=== PATIENT | male | born 1970 | race Caucasian/White ===

== ENCOUNTER 2016-10-15 10:53 | Inpatient (IN) ==
[2016-10-15 12:01] LABS: Basophils # 0.1 K/mcL (0.0-0.2); Eosinophils # 0.2 K/mcL (0.0-0.6); Eosinophils % 3.7 %; Hematocrit 50.5 % (37.5-50.1); Hemoglobin 17.9 g/dL (12.9-16.9); Immature Granulocytes % 0.2 % (0-4); Lymphocytes # 1.4 K/mcL (0.6-4.6); Lymphocytes % 23.4 %; Mean Corpuscular HGB Conc 35.4 g/dL (31.6-35.5); Mean Corpuscular Hemoglobin 31.7 pg (28.0-33.3); Mean Corpuscular Volume 89.4 fL (83.0-100.0); Mean Platelet Volume 10.3 fL (9.4-12.4); Monocytes # 0.6 K/mcL (0.0-1.3); Monocytes % 9.2 %; Neutrophils # 3.7 K/mcL (1.6-8.9); Platelet Count 176 K/mcL (140-400); Red Blood Count 5.65 M/mcL (4.19-5.50); Segmented Neutrophils % 62.5 %
[2016-10-15 12:03] LABS: INR 1.1; Prothrombin Time 11.5 Seconds (9.4-12.1)
[2016-10-15 12:05] LABS: Activated Partial Thrombo Time 29.6 Seconds (26.0-36.0)
[2016-10-15 12:12] LABS: Alanine Aminotransferase 49 Units/L (0-55); Albumin 4.1 g/dL (3.5-5.0); Albumin/Globulin Ratio 1.2 (1.1-2.2); Alkaline Phosphatase 71 Units/L (38-126); Aspartate Amino Transferase 40 Units/L (5-34); BUN/Creatinine Ratio 14 (6-26); Bilirubin,Direct 0.2 mg/dL (0.0-0.5); Bilirubin,Indirect 0.6 mg/dL (0.0-1.2); Bilirubin,Total 0.8 mg/dL (0.2-1.2); Blood Urea Nitrogen 15 mg/dL (8-26); Calcium 9.5 mg/dL (8.6-10.8); Carbon Dioxide 29 mEq/L (19-29); Chloride 100 mEq/L (98-109); Globulin 3.4 g/dL (2.4-3.5); Glucose 111 mg/dL (70-99); Osmolality,Calculated 286 (280-300); Potassium 4.1 mEq/L (3.5-4.5); Sodium 137 mEq/L (136-145); Total Protein 7.5 g/dL (6.0-8.3); eGFR For African Americans > 60 (> 60); eGFR For Non-African Americans > 60 (> 60)
[2016-10-15] MEDS ORDERED: Aspirin 81 MG TAB.CHEW PO ONE (12:43)
--- NOTE | 2016-10-15 12:46 | Emergency Department Note ---
Disposition Clinical Impression: Unstable angina pectoris, NSTEMI (non-ST elevated myocardial infarction) Disposition: Admitted As Inpatient Referrals: Zahida Mendez DO [Primary Care Provider] - Forms: ED Satisfaction Letter Chest Pain HPI - General Chief Complaint: ED Chest Pain Stated Complaint: "high bp", chest pain Time Seen by Provider: 10/15/16 11:06 Source: patient Limitations: no limitations Vital Signs Reviewed: Yes Nursing Notes Reviewed: Yes - History of Present Illness Pt complaint: chest pain Onset (ago): hour(s) (2) Duration: constant Onset: during rest Pain Location: left chest Severity scale (1-10): 2 Quality: heaviness Pain Radiation: LUE Improves with: nothing Worsens with: nothing Associated symptoms: Denies: nausea, vomiting Treatments prior to arrival chest pain: none - Related Data Allergies Allergy/AdvReac Type Severity Reaction Status Date / Time morphine AdvReac Vomiting Verified 10/15/16 11:03 All systems ED: reviewed and negative except as stated. Constitutional: Reports: weakness. Denies: fever, chills Cardiovascular: Denies: palpitations Respiratory: Denies: dyspnea Chest Pain PMH - Past Medical History Medical history: Reports: hypertension, myocardial infarction Psychiatric history: Reports: no psych history - Social History Smoking Status: Never smoker Alcohol use: Reports: occasionally Drug use: Reports: none Physical Exam - General Limitations: no limitations General appearance: alert, in no apparent distress - Head Head exam: atraumatic, normocephalic, normal inspection - Eye Eye exam: Present: normal appearance, PERRL, EOMI - Expanded Eye Exam Pupils: Left: reactive - ENT ENT exam: normal exam, normal oropharynx, mucous membranes moist - Expanded ENT Exam External ear exam: Present: normal external inspection Mouth exam: Present: normal external inspection Teeth exam: Present: normal inspection Throat exam: Present: normal inspection - Neck Neck exam: Present: normal inspection, full ROM, trachea midline - Chest Chest inspection: Present: normal inspection, symmetric chest wall rise - Respiratory Respiratory exam: Present: normal lung sounds bilaterally - Cardiovascular Cardiovascular exam: Present: regular rate, normal rhythm, normal heart sounds - Abdominal Exam Abdominal exam: Present: soft, Non-Tender. Absent: tenderness, distention, guarding, rebound, rigidity - Extremities Exam Extremities exam: Present: normal inspection, full ROM. Absent: tenderness, pedal edema - Expanded Upper Extremity Exam Shoulder exam: Present: normal inspection, full ROM Arm exam: Present: normal inspection, full ROM Elbow exam: Present: normal inspection, full ROM Forearm/Wrist exam: Present: normal inspection, full ROM Hand exam: Present: normal inspection, full ROM Vascular exam: Normal: capillary refill, radial pulse - Expanded Lower Extremity Exam Hip/Pelvis exam: Present: normal inspection, full ROM Upper leg exam: Present: normal inspection, full ROM Knee exam: Present: normal inspection, full ROM Lower leg exam: Present: normal inspection, full ROM Ankle exam: Present: normal inspection, full ROM Foot/toe exam: Present: normal inspection, full ROM Neurovascular/Tendon exam: Absent: motor deficit, sensory deficit, tendon deficit - Back Exam Back exam: Present: normal inspection, full ROM. Absent: tenderness - Neurological Exam Neurological exam: Present: alert, oriented X3 - Expanded Neurological Exam Patient oriented to: Present: person, place, time Coma Scale Eye Opening: Spontaneous Coma Scale Motor Response: Obeys Commands Coma Scale Verbal Response: Oriented Coma Scale Total: 15 - Psychiatric Psychiatric exam: Present: normal affect, normal mood - Skin Skin exam: Present: warm, dry, intact, normal color Course Vital Signs Temperature 97.9 F 10/15/16 10:57 Pulse Rate 62 10/15/16 10:57 Respiratory Rate 16 10/15/16 10:57 Blood Pressure 155/101 10/15/16 10:57 O2 Sat by Pulse Oximetry 97 10/15/16 10:57 Temperature 97.9 F 10/15/16 10:57 Pulse Rate 64 10/15/16 12:48 Respiratory Rate 16 10/15/16 12:48 Blood Pressure 134/95 10/15/16 12:48 O2 Sat by Pulse Oximetry 61 10/15/16 12:48 Oxygen Delivery Oxygen Delivery Room Air Chest Pain - Medical Records Medical records reviewed: Yes I reviewed the patient's medical records. - Lab Data Lab results reviewed: Yes I reviewed the patient's lab results. Result diagrams: 10/15/16 11:44 10/15/16 11:44 Lab Results 10/15/16 10/15/16 10/15/16 Range/Units 11:44 11:44 11:44 WBC (4.3-11.1) K/mcL RBC (4.19-5.50) M/mcL Hgb (12.9-16.9) g/dL Hct (37.5-50.1) % MCV (83.0-100.0) fL MCH (28.0-33.3) pg MCHC (31.6-35.5) g/dL RDW (11.5-14.5) % Plt Count (140-400) K/mcL MPV (9.4-12.4) fL Immature Gran % (0-4) % Seg Neutrophils % % Lymphocytes % % Monocytes % % Eosinophils % % Basophils % % Neutrophils # (1.6-8.9) K/mcL Lymphocytes # (0.6-4.6) K/mcL Monocytes # (0.0-1.3) K/mcL Eosinophils # (0.0-0.6) K/mcL Basophils # (0.0-0.2) K/mcL PT 11.5 (9.4-12.1) Seconds INR 1.1 APTT 29.6 (26.0-36.0) Seconds Sodium 137 (136-145) mEq/L Potassium 4.1 (3.5-4.5) mEq/L Chloride 100 (98-109) mEq/L Carbon Dioxide 29 (19-29) mEq/L BUN 15 (8-26) mg/dL Creatinine 1.11 (0.72-1.25) mg/dL Est GFR ( Amer) > 60 (> 60) Est GFR (Non-Af Amer) > 60 (> 60) BUN/Creatinine Ratio 14 (6-26) Glucose 111 H (70-99) mg/dL Calculated Osmolality 286 (280-300) Calcium 9.5 (8.6-10.8) mg/dL Total Bilirubin 0.8 (0.2-1.2) mg/dL Direct Bilirubin 0.2 (0.0-0.5) mg/dL Indirect Bilirubin 0.6 (0.0-1.2) mg/dL AST 40 H (5-34) Units/L ALT 49 (0-55) Units/L Alkaline Phosphatase 71 (38-126) Units/L Troponin I (0-0.03) ng/mL B-Natriuretic Peptide < 10 (0-100) pg/mL Serum Total Protein 7.5 (6.0-8.3) g/dL Albumin 4.1 (3.5-5.0) g/dL Globulin 3.4 (2.4-3.5) g/dL Albumin/Globulin Ratio 1.2 (1.1-2.2) 10/15/16 10/15/16 Range/Units 11:44 11:44 WBC 6.0 (4.3-11.1) K/mcL RBC 5.65 H (4.19-5.50) M/mcL Hgb 17.9 H (12.9-16.9) g/dL Hct 50.5 H (37.5-50.1) % MCV 89.4 (83.0-100.0) fL MCH 31.7 (28.0-33.3) pg MCHC 35.4 (31.6-35.5) g/dL RDW 13.0 (11.5-14.5) % Plt Count 176 (140-400) K/mcL MPV 10.3 (9.4-12.4) fL Immature Gran % 0.2 (0-4) % Seg Neutrophils % 62.5 % Lymphocytes % 23.4 % Monocytes % 9.2 % Eosinophils % 3.7 % Basophils % 1.0 % Neutrophils # 3.7 (1.6-8.9) K/mcL Lymphocytes # 1.4 (0.6-4.6) K/mcL Monocytes # 0.6 (0.0-1.3) K/mcL Eosinophils # 0.2 (0.0-0.6) K/mcL Basophils # 0.1 (0.0-0.2) K/mcL PT (9.4-12.1) Seconds INR APTT (26.0-36.0) Seconds Sodium (136-145) mEq/L Potassium (3.5-4.5) mEq/L Chloride (98-109) mEq/L Carbon Dioxide (19-29) mEq/L BUN (8-26) mg/dL Creatinine (0.72-1.25) mg/dL Est GFR ( Amer) (> 60) Est GFR (Non-Af Amer) (> 60) BUN/Creatinine Ratio (6-26) Glucose (70-99) mg/dL Calculated Osmolality (280-300) Calcium (8.6-10.8) mg/dL Total Bilirubin (0.2-1.2) mg/dL Direct Bilirubin (0.0-0.5) mg/dL Indirect Bilirubin (0.0-1.2) mg/dL AST (5-34) Units/L ALT (0-55) Units/L Alkaline Phosphatase (38-126) Units/L Troponin I 0.06 H* (0-0.03) ng/mL B-Natriuretic Peptide (0-100) pg/mL Serum Total Protein (6.0-8.3) g/dL Albumin (3.5-5.0) g/dL Globulin (2.4-3.5) g/dL Albumin/Globulin Ratio (1.1-2.2) - Radiology Data Radiology results reviewed: Yes I reviewed the patient's radiology results.
[2016-10-15] MEDS ORDERED: *HR* Heparin 5,000 UNIT/ML VIAL IVP ONE (12:48)
[2016-10-15] MEDS ORDERED: *HR* Heparin 5,000 UNIT/ML VIAL IVP PRN ×2 (12:48)
[2016-10-15] MEDS ORDERED: Heparin 25,000 UNIT/500 ML D5W 25,000 UNIT/500 ML MLS IVC SCH (13:00)
--- NOTE | 2016-10-15 13:40 | Cardiology History & Physical ---
Date of Encounter: 10/15/16 Time of Encounter: 13:30 Assessment and Plan (1) NSTEMI (non-ST elevated myocardial infarction) Current Visit: Yes Status: Acute Initial troponin 0.06. Will trend for total of 3. No EKG changes. Initial cardiac symptoms started this AM--chest pain with radiation to left shoulder/arm associated with feeling flush and arm tingling. Hx of moderate CAD in 2012. 30% mLAD, 40% mRCA, 85% inferior division branch of 1st marginal (small size vessel). Echo in 2013 preserved EF. Symptoms and mild troponin consistent with NSTEMI. Check echo. Recommend [facility]. R/B/A discussed. Will check head CT first due to complaint of blurred vision. If negative, will proceed with [facility]. Pt agreeable. Start heparin gtt if head CT negative. Will start ASA, Statin, BB. (2) CAD (coronary artery disease) Current Visit: Yes Status: Acute As above, moderate disease in 2013--30% mLAD, 40% mRCA, 85% inferior division branch of 1st marginal (small vessel size). ASA, Statin, BB. Qualifiers: Coronary Disease-Associated Artery/Lesion type: [place] artery [place] vs. transplanted heart: [place] heart Associated angina: with unstable angina Qualified Code(s): I25.110 - Atherosclerotic heart disease of [place] coronary artery with unstable angina pectoris (3) Blurred vision Current Visit: Yes Status: Acute Reports new onset of blurred vision 2 days ago. Pt attributes it to sinus issues that are ongoing. No focal deficits. Will order head CT to rule out any acute abnormality. History of Present Illness Chief complaint: Chest pain, blurred vision HPI: Mr. Mercedes is a 46 year old male with PMH of HTN, HLD, moderate CAD on [facility] In 2012 that presented to ED with chief complaint of chest pressure radiating to his left shoulder/arm associated with tingling and feeling flush. These symptoms started earlier today and have been ongoing, not worsened with exertion. Troponin 0.06. He reports he started feeling out of his usual state of health 3 days ago when he noticed his blood pressure was higher than usual. 2 days ago he developed blurred vision that has been constant, but now improved. He denies any focal weakness. Prior CV testing: [facility] 01/16/13: Impressions: Moderate atherosclerotic coronary artery disease. 85% stenosis in the inferior division branch of the 1st Marginal (small size vessel). The left ventricle is normal and has normal contractility EF 60%. Echo 07/31/13: Impressions: LVEF 65%; no obvious SWMA. Normal left ventricular size, thickness and systolic function. Normal diastolic function of the left ventricle. Normal left atrial size. Normal right ventricular size and function. Normal right atrial size. Mild mitral regurgitation. Estimated RVSP was 14 mmHg. No pulmonary hypertension. The IVC is not dilated. Past Med Surg Social Fam HX - Past Medical History Medical history: hypertension, myocardial infarction Psychiatric history: no psych history - Social History Smoking Status: Never smoker Smokeless Tobacco Status: No Alcohol use: occasionally Drug use: none Medications and Allergies Allergies morphine Adverse Reaction (Verified 10/15/16 11:03) Vomiting All Systems Review: A 10-system review of systems was performed and is negative for pertinent findings except as documented above in the HPI. - Constitutional Constitutional: headache(s) - Cardiovascular Cardiovascular: as per HPI, chest pain at rest, chest pain with exertion, diaphoresis Physical Examination Vital Signs, Last 4 Hours Temp Pulse Resp BP Pulse Ox 10/15/16 12:48 64 16 134/95 61 10/15/16 12:02 64 16 148/94 96 10/15/16 11:40 66 14 134/100 96 10/15/16 11:30 61 14 145/94 95 10/15/16 11:20 63 16 150/105 97 10/15/16 10:57 97.9 F 62 16 155/101 97 Vital Signs Temp Pulse Resp BP Pulse Ox 10/15/16 12:48 64 16 134/95 61 10/15/16 12:02 64 16 148/94 96 10/15/16 11:40 66 14 134/100 96 10/15/16 11:30 61 14 145/94 95 10/15/16 11:20 63 16 150/105 97 10/15/16 10:57 97.9 F 62 16 155/101 97 Intake and Output 10/14/16 10/15/16 10/15/16 23:59 07:59 15:59 Other: Weight 102.512 kg Patient Weight 10/15/16 23:59 Weight 102.512 kg General: Conversant, No Apparent Distress HEENT: Atraumatic, Normocephaly, Mucus Membranes Moist Neck: No JVD, Normal carotid pulses Cardiac: Reg Rate and Rhythm, Normal S1 and S2, No Murmur Lungs: Normal Breath Sounds, No Wheeze, Rales, Rhonchi Neuro: Alert and responsive, No focal deficits noted Abdomen: Soft, Non-Tender Skin: No rashes noted on visualized skin Musculoskeletal: No Chest Wall Tenderness Extremities: No Clubbing, No Cyanosis, No Edema, Normal Pulses Results 10/15/16 11:44 10/15/16 11:44 Lab Results 10/15/16 10/15/16 10/15/16 11:44 11:44 11:44 WBC Hgb Hct Plt Count INR 1.1 APTT 29.6 Sodium 137 Potassium 4.1 Chloride 100 Carbon Dioxide 29 BUN 15 Creatinine 1.11 Glucose 111 H Calcium 9.5 Total Bilirubin 0.8 AST 40 H ALT 49 Alkaline Phosphatase 71 Troponin I B-Natriuretic Peptide < 10 10/15/16 10/15/16 11:44 11:44 WBC 6.0 Hgb 17.9 H Hct 50.5 H Plt Count 176 INR APTT Sodium Potassium Chloride Carbon Dioxide BUN Creatinine Glucose Calcium Total Bilirubin AST ALT Alkaline Phosphatase Troponin I 0.06 H* B-Natriuretic Peptide Short CBC 10/15/16 Range/Units 11:44 WBC 6.0 (4.3-11.1) K/mcL Hgb 17.9 H (12.9-16.9) g/dL Hct 50.5 H (37.5-50.1) % Plt Count 176 (140-400) K/mcL Neutrophils # 3.7 (1.6-8.9) K/mcL BMP 10/15/16 Range/Units 11:44 Sodium 137 (136-145) mEq/L Potassium 4.1 (3.5-4.5) mEq/L Chloride 100 (98-109) mEq/L Carbon Dioxide 29 (19-29) mEq/L BUN 15 (8-26) mg/dL Creatinine 1.11 (0.72-1.25) mg/dL Glucose 111 H (70-99) mg/dL Calcium 9.5 (8.6-10.8) mg/dL Cardiac Enzymes 10/15/16 Range/Units 11:44 Troponin I 0.06 H* (0-0.03) ng/mL Liver Function 10/15/16 Range/Units 11:44 Total Bilirubin 0.8 (0.2-1.2) mg/dL Direct Bilirubin 0.2 (0.0-0.5) mg/dL AST 40 H (5-34) Units/L ALT 49 (0-55) Units/L Alkaline Phosphatase 71 (38-126) Units/L Albumin 4.1 (3.5-5.0) g/dL Impressions Chest X-Ray 10/15/16 11:04 IMPRESSION: No acute cardiopulmonary disease D/ / Robin Pinto MD / Robin Pinto MD Interpreting Provider: Robin Pinto MD Active Medications Heparin Sodium (Porcine) (Heparin) 4,000 unit IVP Q6HR PRN PRN Reason: SEE COMMENTS Stop: 04/16/17 12:49 Heparin Sodium (Porcine) (Heparin) 2,000 unit IVP Q6H PRN PRN Reason: SEE COMMENTS Stop: 04/16/17 12:49 Heparin Sodium/Dextrose (Heparin 25,000 Unit/500 Ml D5w) 25,000 unit in 500 mls @ 24.603 mls/hr IVC .[id number] ERASTO; 12 UNIT/KG/HR PRN Reason: Protocol Stop: 04/16/17 13:01 - Imaging and Cardiology Echo: report reviewed Cardiac cath: report reviewed - EKG Interpretation EKG results cardiology: personally reviewed (Sinus adiel, rate 57)
[2016-10-15] MEDS ORDERED: 0.9 % Sodium Chloride 1,000 ML ONE (13:50)
[2016-10-15] MEDS ORDERED: *HR* Heparin 10,000 UNIT/10 ML VIAL ONE (13:50)
[2016-10-15] MEDS ORDERED: Nitroglycerin 1,000 MCG/10 ML VIAL IV ONE (13:50)
[2016-10-15] MEDS ORDERED: Heparin 1,000 UNITS/500 mL NS 500 ML ONE (13:50)
[2016-10-15] MEDS ORDERED: Verapamil 5 MG/2 ML VIAL ONE (13:55)
[2016-10-15] MEDS ORDERED: *HR* Midazolam HCl 5 MG/5 ML VIAL IVP ONE (14:37)
[2016-10-15] MEDS ORDERED: *HR* FentaNYL (PF) 100 MCG/2 ML VIAL ONE (14:37)
--- NOTE | 2016-10-15 14:46 | Pre-Sedation Evaluation ---
Pre-sedation evaluation - Pre-sedation checklist Date of procedure: 10/15/16 Procedure: [facility] Recent Vitals: Last Vital Signs Temp 97.9 F 10/15/16 10:57 Pulse 64 10/15/16 12:48 Resp 16 10/15/16 12:48 BP 134/95 10/15/16 12:48 Pulse Ox 61 10/15/16 12:48 H&P (including ROS) documented in medical record: Yes Previous reaction to sedatives/anesthetics: No Dietary Status: NPO after Midnight Airway Assessment: Patient can open mouth completely, TMJ function normal ASA Classification *see protocol: CLASS II-Mild systemic disease Plan of Care: Pt appropriate candidate for procedure/moderate/conscious sedation , Risks/benefits of procedure/sedation discussed w/ patient/family
--- NOTE | 2016-10-15 15:46 | Event Note ---
Date of Encounter: 10/15/16 Time of Encounter: 15:00 - Cardiology Event Note PCI OM SAULO x 1. Normal EF. Aspirin and plavix x 1 year
[2016-10-16 04:14] LABS: Basophils % 0.5 %; Eosinophils # 0.3 K/mcL (0.0-0.6); Eosinophils % 3.8 %; Hematocrit 50.2 % (37.5-50.1); Hemoglobin 17.1 g/dL (12.9-16.9); Immature Granulocytes % 0.3 % (0-4); Lymphocytes # 1.4 K/mcL (0.6-4.6); Lymphocytes % 18.3 %; Mean Corpuscular HGB Conc 34.1 g/dL (31.6-35.5); Mean Corpuscular Hemoglobin 30.5 pg (28.0-33.3); Mean Corpuscular Volume 89.6 fL (83.0-100.0); Mean Platelet Volume 10.2 fL (9.4-12.4); Monocytes # 0.7 K/mcL (0.0-1.3); Monocytes % 8.7 %; Neutrophils # 5.1 K/mcL (1.6-8.9); Platelet Count 176 K/mcL (140-400); Red Cell Distribution Width 13.1 % (11.5-14.5); Segmented Neutrophils % 68.4 %
[2016-10-16 04:31] LABS: BUN/Creatinine Ratio 15 (6-26); Blood Urea Nitrogen 17 mg/dL (8-26); Carbon Dioxide 25 mEq/L (19-29); Chloride 102 mEq/L (98-109); Chol/HDL Ratio 9.5 (0-4.9); Cholesterol 246 mg/dL (< 200); Glucose 112 mg/dL (70-99); HDL Cholesterol 26 mg/dL (40-59); Osmolality,Calculated 286 (280-300); Triglycerides 723 mg/dL (< 150); eGFR For African Americans > 60 (> 60); eGFR For Non-African Americans > 60 (> 60)
[2016-10-16 04:38] LABS: Sodium 137 mEq/L (136-145)
[2016-10-16 06:43] VITALS: BP 139/83
[2016-10-16] MEDS ORDERED: Azithromycin 250 MG TABLET PO ONE (08:40)
--- NOTE | 2016-10-16 08:43 | Discharge Summary ---
Date of Encounter: 10/16/16 Time of Encounter: 08:42 - Discharge Diagnosis (1) NSTEMI (non-ST elevated myocardial infarction) Priority: Primary Status: Acute Comments: Troponin 0.06, 0.06 with acute onset of chest pressure radiating to left arm. S/P LHC yesterday with SAULO to OM. EF preserved on cath. DAPT (ASA and Plavix) x 1 year. Continue BB, switched from simvastatin to atorvastatin. Triglycerides 723, add fenofibrate. Symptoms now resolved. Denies chest or arm discomfort. Left radial access site healing well. No bleeding, hematoma or ecchymosis noted. Echo pending. Labs and vitals stable. Discharge home in stable condition with outpt follow-up in 1 week. (2) CAD (coronary artery disease) Priority: Primary Status: Acute Comments: As above, S/P SAULO to OM. ASA and Plavix uninterrupted x 1 year. Statin, BB, fenofibrate. Qualifiers: Coronary Disease-Associated Artery/Lesion type: [place] artery [place] vs. transplanted heart: [place] heart Associated angina: with unstable angina Qualified Code(s): I25.110 - Atherosclerotic heart disease of [place] coronary artery with unstable angina pectoris (3) Sinusitis Priority: Secondary Status: Acute Comments: Pt reports sinusitis symptoms ongoing for 3 weeks---headache, congestion, blurred vision that recently started. Head CT negative for acute abnormality. Hx of sinusitis, reports Z-papi usually works best for him. Discussed with pharmacist given NSTEMI. Short course of Azithromycin safe to use. Will give Rx for Z-papi. Qualifiers: Sinusitis location: unspecified location Chronicity: acute Recurrence: not specified as recurrent Qualified Code(s): J01.90 - Acute sinusitis, unspecified (4) Hyperlipidemia Priority: Secondary Status: Acute Comments: Triglycerides 723, total cholesterol 246. Switch Simvastatin to Atorvastatin. Start fenofibrate therapy. Recheck Lipids in 6 weeks. Qualifiers: Hyperlipidemia type: mixed hyperlipidemia Qualified Code(s): E78.2 - Mixed hyperlipidemia - Discharge Medications Prescriptions: Nitroglycerin 0.4 mg SL Q5MIN #30 tab.subl Atorvastatin [Lipitor] 80 mg PO HS #30 tablet Azithromycin [Zithromax] 250 mg PO DAILY #4 tablet Fenofibrate [Tricor] 54 mg PO DAILY #30 tablet Home Medications: Aspirin [Lo-Dose Aspirin EC] 81 mg PO DAILY 10/15/16 [History] Clopidogrel [Plavix] 75 mg PO DAILY 10/15/16 [History] Esomeprazole Magnesium [Nexium] 40 mg PO DAILY 10/15/16 [History] Fluticasone Propionate Nasal [Flonase] 2 spr NS DAILY PRN 10/15/16 [History] Garlic [Odorless Garlic] 300 mg PO DAILY 10/15/16 [History] Loratadine [Claritin] 10 mg PO DAILY PRN 10/15/16 [History] Metoprolol [Lopressor] 25 mg PO BID 10/15/16 [History] Multivits,Ca,Min/Iron/FA/Lycop [Men Under 50 Multivitamin Tab] 1 each PO DAILY 10/15/16 [History] Clancy-3/Dha/Epa/Fish Oil [Fish Oil 1,000 mg Softgel] 1,000 mg PO DAILY 10/15/16 [History] Testosterone Cypionate [Depo-Testosterone] 200 mg IM Q2W 10/15/16 [History] Aspirin 81 mg PO DAILY tab.chew 10/16/16 [Rx] Atorvastatin [Lipitor] 80 mg PO HS #30 tablet 10/16/16 [Rx] Azithromycin [Zithromax] 250 mg PO DAILY #4 tablet 10/16/16 [Rx] Clopidogrel [Plavix] 75 mg PO DAILY tablet 10/16/16 [Rx] Fenofibrate [Tricor] 54 mg PO DAILY #30 tablet 10/16/16 [Rx] Metoprolol [Lopressor] 25 mg PO BID tablet 10/16/16 [Rx] Nitroglycerin 0.4 mg SL Q5MIN #30 tab.subl 10/16/16 [Rx] Allergies/Adverse Reactions: Allergies morphine Adverse Reaction (Verified 10/15/16 11:03) Vomiting Procedures/tests Complete & Pending: Procedures Performed prior 72 hours Category Date Time Status ECG 12 lead ECG [ECG] Routine Y 10/15/16 15:35 Completed Date of admission: 10/15/16 15:21 Primary care physician: Zahida Mendez Discharging clinician: Geo Elliott Anticipated date of discharge: 10/16/16 - Patient Status Disposition: Home, Self-Care Condition: Good Functional capacity at discharge: independent ambulation Overall status at discharge: patient is progressing back to baseline - Discharge Instructions Follow Up With: Zahida Mendez DO [Primary Care Provider] - Additional Instructions: RISK FACTORS: STOP SMOKING: If you smoke, STOP. Smoking or tobacco use significantly increases your risk of heart disease because nicotine causes the arteries to narrow or constrict. It also causes fats to stick to the artery. Your chances of having a heart attack are greatly increased if you continue to smoke. For more information, call the education line for smoking cessation 3-042-[id number] EAT A LOW FAT/CHOLESTEROL/SODIUM DIET: This diet may help reduce your chances of having a heart attack. LIFTING: With affected extremity: Avoid bending, pushing off and lifting more than 2 pounds for 24 hours The following 48 hours, avoid lifting anything more than 5 pounds Avoid strenuous activity or repetitive motions ACTIVITY: You may walk or climb stairs as tolerated You can resume sexual activity as tolerated In general, you are encouraged to engage in a minimum of 30 minutes or more of moderate intensity physical activity, such as brisk walking, daily or at least 3 -4 times weekly BATHING Do not submerge the site into water (bath tub, hot tub, swimming pool, dishes) for 1 week. This can be a source for infection into the blood stream. You may shower after 24 hours SITE CARE: After 24 hours, you may remove the dressing and leave the site open to air. Keep the site clean and dry. Clean gently and pat dry. You can expect bruising and tenderness that gradually resolve within a week or two. Return to work as instructed per your physician Resume driving as instructed per physician Keep all scheduled follow up appointments Resume medications as instructed IMPORTANT: If prescribed a Platelet Aggregation Inhibitor such as, Plavix, Brilinta or Effient: Duration of therapy is minimum one year These medications are often used in combination with Aspirin in prevention of future heart attacks Never discontinue unless consult with your Sex Crimes Detective STROKE (CVA) Risk factors for a stroke are: Age, cigarette smoking, diabetes, excessive alcohol consumption, family history, high blood pressure, overweight, physical inactivity, prior stroke, heart attack, diagnosis of carotid artery stenosis or other artery disease. Warning signs: Sudden numbness or weakness of the face, arm or leg; especially on one side of the body, sudden confusion, trouble speaking or understanding, sudden trouble seeing in one or both eyes, sudden trouble walking, dizziness, loss of balance or coordination, sudden severe headache with no cause. Call 911 or go to the Emergency Room. CONGESTIVE HEART FAILURE: If you have been diagnosed with Congestive Heart Failure (CHF) and your symptoms return, make an appointment with your physician Weigh yourself daily. Notify your physician if you have a weight gain of two or more pounds in one day or five or more pounds in one week. If you experience any difficulty breathing, please call 911 BLEEDING: Although the risk of bleeding is minimal, it can happen. If you have any bleeding from the site, apply firm pressure above the puncture site for 10-15 minutes. If the bleeding does not stop, continue manual pressure and call 911 Contact [facility] ( ) if: You develop a fever greater than 101 degrees Fahrenheit Your site becomes reddened or has any drainage You have an increase in pain or burning at the site or if a large knot forms at the site. If you experience chest pain, shortness of breath, dizziness, or extreme tiredness, stop the activity and rest. Please notify [facility] office if you experience any of these symptoms and they are not relieved by rest please call 911! - Diet and Activity Activity: increase activity as tolerated Diet: low fat, low cholesterol - Hospital Course Hospital course: Mr. Mercedes is a 46 year old male that presented to left sided chest pain radiating down his left arm. Troponin 0.06, 0.06, diagnosed as NSTEMI. S/P LHC yesterday with SAULO to OM. EF preserved on cath. Symptoms now resolved. Denies chest or arm discomfort. Left radial access site healing well. No bleeding, hematoma or ecchymosis noted. DAPT (ASA and Plavix) x 1 year. Continue BB, switched from simvastatin to atorvastatin. Triglycerides 723, add fenofibrate. Echo pending. Discharge home in stable condition with outpt follow-up in 1 week. Pt reports sinusitis symptoms ongoing for 3 weeks---headache, congestion, blurred vision that recently started. Head CT negative for acute abnormality. Hx of sinusitis, reports Z-papi usually works best for him. Discussed with pharmacist given NSTEMI. Short course of Azithromycin safe to use. Will give Rx for Z-papi. - Time Spent with Patient Total time spent providing and/or coordinating discharge services: Physical Examination Vital Signs, Last 4 Hours Temp Pulse Resp BP Pulse Ox 10/16/16 08:04 95 10/16/16 06:40 98.6 F 70 15 139/83 95 10/16/16 04:45 98.6 F 71 17 134/90 94 Vital Signs Temp Pulse Resp BP Pulse Ox 10/16/16 08:04 95 10/16/16 06:40 98.6 F 70 15 139/83 95 10/16/16 04:45 98.6 F 71 17 134/90 94 10/16/16 00:09 97.9 F 77 16 105/63 96 10/15/16 20:38 97 10/15/16 19:53 97.6 F 71 21 136/97 97 10/15/16 16:18 97.5 F L 69 15 125/83 95 10/15/16 14:00 16 125/83 10/15/16 12:48 64 16 134/95 61 10/15/16 12:02 64 16 148/94 96 10/15/16 11:40 66 14 134/100 96 10/15/16 11:30 61 14 145/94 95 10/15/16 11:20 63 16 150/105 97 10/15/16 10:57 97.9 F 62 16 155/101 97 Intake and Output 10/15/16 10/16/16 10/16/16 23:59 07:59 15:59 Intake Total 100 / 100 Balance 100 / 100 Intake: Oral 100 / 100 Other: # Voids 1 General: Conversant, No Apparent Distress HEENT: Atraumatic, Normocephaly, Mucus Membranes Moist Neck: No JVD, Normal carotid pulses Cardiac: Reg Rate and Rhythm, Normal S1 and S2, No Murmur Lungs: Normal Breath Sounds, No Wheeze, Rales, Rhonchi Neuro: Alert and responsive, No focal deficits noted Abdomen: Soft, Non-Tender Skin: Other (left radial access site healing well. No bleeding, hematoma or ecchymosis noted.) Musculoskeletal: No Chest Wall Tenderness Extremities: No Clubbing, No Cyanosis, No Edema, Normal Pulses
[2016-10-16] MEDS ORDERED: Aspirin 81 MG TAB.CHEW PO SCH (09:00)
[2016-10-16] MEDS ORDERED: Aspirin Enteric Coated 81 MG Tablet PO SCH (09:00)
[2016-10-16] MEDS ORDERED: Fenofibrate 54 MG TABLET PO SCH (09:30)
--- NOTE | 2016-10-16 12:57 | Electrocardiograph Report ---
[place] [address] Test Date: 2016-10-15 Pat Name: Ehsan Mercedes Department: 102 Room: 2NE21 Gender: M Mds Nurse: Mellissa : 1970 Requested By: Izaiah Aragon Order Number: [id number] Reading MD: Evan Toussaint MD Measurements Intervals [place] Rate: 57 P: 54 VA: 177 QRS: -29 QRSD: 93 T: 17 QT: 374 QTc: 369 Interpretive Statements SINUS BRADYCARDIA BORDERLINE LEFT AXIS DEVIATION Electronically Signed On 10-16-2016 12:56:08 EDT by Evan Toussaint MD
--- NOTE | 2016-10-16 13:02 | Electrocardiograph Report ---
[place] [id number] Test Date: 2016-10-15 Pat Name: Ehsan Mercedes Department: 106 Room: 2N1 Gender: M Contact Worker: : 1970 Requested By: Evan Toussaint Order Number: [id number] Reading MD: Evan Toussaint MD Measurements Intervals [place] Rate: 59 P: 53 WI: 183 QRS: -42 QRSD: 90 T: 4 QT: 380 QTc: 379 Interpretive Statements SINUS BRADYCARDIA WITH SINUS ARRHYTHMIA MARKED LEFT AXIS DEVIATION Electronically Signed On 10-16-2016 13:01:13 EDT by Evan Toussaint MD
--- NOTE | 2016-10-16 14:25 | Invasive Diagnostic Lab ---
Name: Ehsan Mercedes Date of Study: 10/15/2016 Date: 1970 Ht: 180.0 cm /70.9 in Medical Record#: [id number] Age: 46 Wt: 103. kg / 227.08 lb Account/Order#: [id number] Gender: Male BSA: 2.22 Order #: [id number] Fluoro Dose: 728 mGy BMI: 31.79 Procedure Physician: Evna Toussaint MD, [facility] Referring MD: Neville Jaimes MD Referring MD: Procedures Performed: LEFT HEART CATH Stent w/ PTCA Single Major Vessel Indications: Non-Stemi Impressions: There is severe one vessel coronary artery disease. The left ventricle is normal and has normal contractility EF 60% Patient had successful PTCA/Drug-Eluting Stent placement in the 2nd OM. Recommendations: Optimal medical therapy of patient's disease. Aggressive risk factor modification. History/Risk Factors: [place] CAD Hypertension Dyslipidemia Family History of CAD Procedure Access obtained in the left Radial artery by percutaneous puncture Patient had successful PTCA/Drug-Eluting Stent placement in the 2nd OM. Complications: None, None Contrast: Isovue 122ml Closure Device: MynxGrip Hemodynamics: Pressures Site Systolic/ A Wave Diastolic/ V Wave End Diastolic/ Mean HR AO 117 97 108 73 AO 114 93 105 74 LV 116 -6 5 75 AO 123 81 102 77 AO 114 74 92 63 AO 100 64 82 71 AO 92 56 74 72 LV Ventriculography Ejection Method: LV Gram Ejection Fraction: 60% Wall Motion: SERRANO Anterobasal Normal Anterolateral Normal Apical: Normal Inferoapical Normal Inferobasal Normal Coronary Dominance: Left Lesion Findings/Interventions * Left Main Coronary Artery The LMCA is angiographically free of disease. * Left Anterior Descending There is a 30% stenosis in the proximal LAD and 20% mid. The lesion has a BRYAN flow of 3. * Circumflex There is a 16 mm long, 90% stenosis in the 2nd Marginal. The lesion has a BRYAN flow of 3. An intervention was performed on the 2nd Marginal with a final stenosis of 0%. There were no lesion complications. The final BRYAN flow was 3. * Right Coronary Artery - small nondominant The RCA is angiographically free of disease. Interventional Device(s) Vessel Segment Type Name Diameter (mm) Length (mm) 2nd Marginal Balloon Emerge Monorail 2 12 2nd Marginal Drug Eluting Stent Synergy 2.25 16 2nd Marginal Balloon NC Emerge 2.25 12 Updated by Leslie Fraser RT (R) on 10/15/2016 3:48:35 PM Evan Toussaint MD, FACC electronically signed on 10/16/2016 2:21:41 PM with status of Final
--- NOTE | 2016-10-19 16:43 | Invasive Diagnostic Lab Proc ---
Name: Ehsan Mercedes Date of Study: 10/15/2016 Date: 1970 Ht: 70.9in Medical Record#: [id number] Age: 46 Wt: 227.08lb Gender: Male BSA: 2.22 Order #: [id number] BMI: 31.79 Physicians Procedure Physician: Evan Toussaint MD, [facility] Referring MD: Neville Jaimes MD Referring MD: Staff Name Position Time In YulyAnnelise perez RN Manager Contact 02:29 PM Shanon Sorto RT Scrub 02:29 PM Madhavi Mcwilliams RN Monitor 02:29 PM Kim, Elayne RT (R) Manager Contact 03:36 PM Indications Indication Non-Stemi Procedures Performed Procedure L HRT ARTERY/VENTRICLE ANGIO PRQ CARD SAULO STENT W/ANGIO 1 VSL Pre-Procedure Checklist Informed consent is complete signed and on chart. H\\T\\P is on chart. ID band is on and ID verified with patient. Patient NPO for procedure The procedure was described for the patient and questions were answered. ECG is on chart. Rhythm: NSR Plan of Care Patient will tolerate the procedure without complications. Adequate level of comfort will be maintained. Hemodynamics will remain stable Patient will recover from procedure without complications. Respiratory function will be maintained. Cardiac rhythm will remain stable. Patient temperature will be maintained. Patient and/or family have verbalized understanding of the procedure. Patient Education Chief Complaint/Reason for Test: Cardiac Cath Developmental Category: Adult (18-64 years) Developmentally Appropriate for Age: Yes Learning Barriers: None Education Needs: Procedure Education Method: Verbal Information Taught: Cardiac Cath Educational Evaluation: Able to repeat information Intravenous Access Time IV Size Location DC'd Fluid/Drip Rate Units RN 02:26 PM 20g 1 /" Patent On Arrival Rt Antecubital 0.9NaCl 25 ml/hr Madhavi Mcwilliams RN Allergies morphine Vital Signs Time BP (mmHg) HR (bpm) O2 Sat. RR (bpm) LOC 02:55 PM / % 5 = Fully awake and oriented or at pre-proc level 02:55 PM / % 5 = Fully awake and oriented or at pre-proc level 03:10 PM / % 5 = Fully awake and oriented or at pre-proc level 02:32 PM 148 / 99 63 98 % 02:35 PM 149 / 96 66 99 % 16 02:37 PM 160 / 87 74 99 % 13 02:40 PM 156 / 93 72 99 % 20 02:43 PM 156 / 106 65 100 % 12 02:46 PM 150 / 104 76 99 % 13 02:49 PM 155 / 105 70 99 % 11 02:52 PM 164 / 107 68 99 % 14 02:55 PM 164 / 108 84 98 % 13 02:58 PM 144 / 100 62 95 % 10 03:02 PM 161 / 101 69 97 % 10 03:04 PM 153 / 93 81 95 % 16 03:07 PM 133 / 88 80 94 % 14 03:10 PM 146 / 72 65 96 % 19 03:13 PM 145 / 78 69 94 % 12 03:17 PM 136 / 79 62 93 % 12 03:19 PM 145 / 79 68 97 % 10 03:22 PM 133 / 84 67 96 % 15 03:25 PM 146 / 86 63 95 % 12 03:28 PM 151 / 93 65 96 % 15 03:31 PM 150 / 95 94 96 % 13 03:45 PM 120 / 91 66 95 % 16 5 = Fully awake and oriented or at pre-proc level 04:04 PM 120 / 91 68 94 % 16 5 = Fully awake and oriented or at pre-proc level Procedural Medications Time Medication Dose Units Method Given By 02:30 PM Oxygen 2 L/min nasal cannula Annelise Emery RN 02:40 PM Versed 2 mg Intravenous Annelise Emery RN 02:40 PM Fentanyl 50 mcg Intravenous Annelise Emery RN 02:53 PM Lidocaine 2% 0.5 ml Subcutaneous Evan Toussaint MD, FAC 02:53 PM Versed 2 mg Intravenous Annelise Emery RN 02:53 PM Fentanyl 50 mcg Intravenous Annelise Emery RN 03:04 PM Heparin 4000 units Nitroglycerin 200 mcg Verapamil 2.5 mg Intraarterial Evan Toussaint MD, FACC 03:24 PM Heparin 1000 units Intravenous Madhavi Mcwilliams RN 03:35 PM Plavix 300 mg Orally Madhavi Mcwilliams RN ASA Classification: CLASS II- Mild systemic disease (i.e. well-controlled diabetes, hypertension, asthma, cigarette smoking) Marion Score Preprocedure Postprocedure Activity 2- Moves 4 extremities sustained head lift Activity 2- Moves 4 extremities sustained head lift Circulation 2- SBP +/= 20 points of pre-anesthetic level Circulation 2- SBP +/= 20 points of pre-anesthetic level Consciousness 2- Awake and alert oriented x 3 Consciousness 2- Awake and alert oriented x 3 O2 Saturation 2- Able to maintain O2 satruation of 92% on room air O2 Saturation 2- Able to maintain O2 satruation of 92% on room air Respiratory 2- Able to deep breathe and cough well Respiratory 2- Able to deep breathe and cough well Total Score 10 Total Score 10 Contrast Agent: Isovue Diagnostic Contrast: 122 ml Total Contrast: 122 ml Fluoro Dose: 728 mGy Procedure Log Time Note Enter By 02:29 PM Pt arrived to clinical laboratory assistant 2 at 14:29 02:29 PM Annelise Emery RN Position: Manager Contact Time in: : 02: PM Shanon Sorto Position: Scrub Time in: :: PM Madhavi Mcwilliams RN Position: Monitor Time in: : 02:29 PM Patient charges- Angio tray pack, Navilyst 3mm J, Pulse Oximetry and ACIST tubing and transducer 02:30 PM Time: 14:30 Oxygen on at 2 L/min per nasal cannula by Annelise Emery RN 02:31 PM CathStat 02:31 PM Vitals capture started with the following parameters, Patient=Adult, Interval=3 min, Initial Udvvaroc=268 mmHg, Deflation Rate=5 mmHg, Cuff placed on Right Arm 02:32 PM HR=63 bpm, QXQK=926/99 mmhg, SpO2=98.0 %, Comment=SR 02:35 PM HR=66 bpm, EWIU=652/96 mmhg, SpO2=99.0 %, Resp=16 B/min, Comment=SR 02:37 PM HR=74 bpm, ZSRJ=439/87 mmhg, SpO2=99.0 %, Resp=13 B/min, Comment=SR 02:38 PM Physician arrived 14:38 :38 PM Meet and greet completed 02:38 PM Sign in performed according to hospital policy. :38 PM Procedure start 14:38 02:40 PM Time: 14:40 Versed 2 mg Intravenous Given by Annelise Emery RNrasheed 02:40 PM Time: 14:40 Fentanyl 50 mcg Intravenous Given by Annelise Emery RN rasheed 02:40 PM HR=72 bpm, HCDK=903/93 mmhg, SpO2=99.0 %, Resp=20 B/min, Comment=SR 02:43 PM HR=65 bpm, QPKO=402/106 mmhg, FmP3=297.0 %, Resp=12 B/min, Comment=SR 02:46 PM HR=76 bpm, KREK=627/104 mmhg, SpO2=99.0 %, Resp=13 B/min, Comment=SR 02:48 PM Recorded ECG: HR=76 Condition=Condition 1 02:48 PM Pressure channel 1 zeroed. 02:49 PM HR=70 bpm, HVYZ=767/105 mmhg, SpO2=99.0 %, Resp=11 B/min, Comment=SR 02:52 PM Time out performed according to hospital policy 02:52 PM HR=68 bpm, CZXW=185/107 mmhg, SpO2=99.0 %, Resp=14 B/min, Comment=SR 02:53 PM Time: 14:53 0.5 ml Lidocaine 2% to left radial Subcutaneous Given by Evan Toussaint MD, FACC 02:53 PM Time: 14:53 Versed 2 mg Intravenous Given by Annelise Emery RN 02:53 PM Time: 14:53 Fentanyl 50 mcg Intravenous Given by Annelise Emery RN [facility] 02:55 PM Time: 14:55 Patient comfortable and pain free: Yes 02:55 PM Time: 14:55LOC: 5 = Fully awake and oriented or at pre-proc level 02:55 PM Unsuccessful access attempt # 1 into the left Radial artery. Manual pressure applied to achieve hemostasis.. 02:55 PM HR=84 bpm, VYJN=668/108 mmhg, SpO2=98.0 %, Resp=13 B/min, Comment=SR 02:57 PM Unsuccessful access attempt # 2 into the left Radial artery. Manual pressure applied to achieve hemostasis.. 02:57 PM bed management called for bed assignment allner 02:58 PM HR=62 bpm, FKGL=002/100 mmhg, SpO2=95.0 %, Resp=10 B/min, Comment=SR 03:02 PM HR=69 bpm, XNVL=293/101 mmhg, SpO2=97 %, Resp=10 B/min 03:04 PM Access obtained by percutaneous puncture. 6Fr 10cm Terumo Glidesheath sheath placed in left Radial artery. [id number] kkallner 03:04 PM Time: 15:04 Patient given 4,000 units Heparin, 200 mcg Nitroglycerin, and 2.5 mg Verapamil Intraarterial by Evan Toussaint MD, [facility] kkallner 03:04 PM HR=81 bpm, UZFX=708/93 mmhg, SpO2=95.0 %, Resp=16 B/min, Comment=SR 03:05 PM 5Fr FR 4 catheter inserted over the wire DNC then wire removed kkallner 03:07 PM HR=80 bpm, YTFE=016/88 mmhg, SpO2=94.0 %, Resp=14 B/min, Comment=SR 03:08 PM Coronary Dominance: Left kkallner 03:08 PM RCA angiography performed in [place] kkallner 03:08 PM Catheter removed kkallner 03:08 PM 5Fr FL 4 catheter inserted over the wire DNC then wire removed kkallner 03:09 PM Recorded Pressure: Ao, HR=73, Condition=Condition 1 (Aorta) Ao 117/97/108 03:10 PM Time: 14:55 Patient comfortable and pain free: Yes kkallner 03:10 PM Time: 14:55LOC: 5 = Fully awake and oriented or at pre-proc level kkallner 03:10 PM LCA angiography performed in multiple views. [email or web address] 03:10 PM Recorded Pressure: Ao, HR=74, Condition=Condition 1 (Aorta) Ao 114/93/105 03:10 PM HR=65 bpm, SBSQ=834/72 mmhg, SpO2=96.0 %, Resp=19 B/min, Comment=SR 03:11 PM Lesion found in Proximal LAD. Pre Stenosis: 40 Pre BRYAN Flow: 3: Complete and Brisk Flow/Perfusion kkallner 03:11 PM Proximal Left Anterior Descending Coronary Artery with 40% stenosis. [email or web address] 03:12 PM Lesion found in 2nd Marginal. Pre Stenosis: 90 Pre BRYAN Flow: 3: complete and Brisk Flow/Perfusion kkallner 03:12 PM Circumflex, Obtuse Marginal, Left Posterior Descending, and Left Posterolateral Coronary Arteries with 90 % stenosis. kkallner 03:13 PM Catheter removed kkallner 03:13 PM 5Fr Pigtail catheter inserted over the wire DNC kkallner 03:13 PM HR=69 bpm, VRKR=340/78 mmhg, SpO2=94.0 %, Resp=12 B/min, Comment=SR 03:14 PM Catheter selectively placed in left ventricle kkall 03:15 PM Pressure channel 1 zero failed. 03:15 PM Pressure channel 1 zeroed. 03:15 PM Bolus angiogram of left Ventricle complete: 10 ml/sec for a total of 20 mls kk 03:15 PM Time: 15:10 Patient comfortable and pain free: Yes kk 03:15 PM Time: 15:10LOC: 5 = Fully awake and oriented or at pre-proc level kkall 03:15 PM Recorded Pressure: LV, Ao, HR=75, Condition=Condition 1 (Left Ventricle) LV 116/-6/5, (Aorta) Ao 123/81/102 03:16 PM Catheter removed kk 03:17 PM HR=62 bpm, HZPM=395/79 mmhg, SpO2=93.0 %, Resp=12 B/min 03:17 PM PCI Status Urgent dspell 03:17 PM PCI Indication: PCI for high risk Non-STEMI or unstable angina dspell 03:18 PM PCI lesion in 2nd Marginal. Pre Stenosis: 90 Pre BRYAN Flow: dspell 03:18 PM PCI lesion in 2nd Marginal. dspell 03:18 PM 6Fr EBU 3.5 [employer] guide catheter was used to cannulate the PCI vessel successfully. reused? No dspell 03:19 PM .014 [place] 190cm guide wire across target lesion- successful. reused? No dspell 03:19 PM Inflation device was opened. 03:19 PM Recorded Pressure: Ao, HR=63, Condition=Condition 1 (Aorta) Ao 114/74/92 03:19 PM HR=68 bpm, WDWF=459/79 mmhg, SpO2=97.0 %, Resp=10 B/min, Comment=SR 03:20 PM 2.0 mm x 12 mm Emerge Monorail balloon across target lesion- successful. reused? No dspell 03:22 PM Balloon inflated @ 10 brian for 20 seconds dspell 03:22 PM HR=67 bpm, WDBY=732/84 mmhg, SpO2=96.0 %, Resp=15 B/min 03:23 PM Balloon catheter removed intact. [email or web address] 03:24 PM 2.25mm x 16mm Synergy drug-eluting stent across target lesion- successful Lot #[id number] dspellman 03:24 PM Recorded Pressure: Ao, HR=71, Condition=Condition 1 (Aorta) Ao 100/64/82 03:24 PM Time: 15:24 Heparin 1000 units Intravenous Given by Madhavi Mcwilliams RN dspell 03:25 PM HR=63 bpm, GFAW=045/86 mmhg, SpO2=95.0 %, Resp=12 B/min, Comment=SR 03:26 PM Stent deployed @ 12 brian for 30 seconds dspellman 03:27 PM Stent delivery system removed intact. dspell 03:27 PM 2.25 mm x 12mm NC Emerge balloon across target lesion- successful. reused? No dspellman 03:28 PM Recorded Pressure: Ao, HR=72, Condition=Condition 1 (Aorta) Ao 92/56/74 03:28 PM HR=65 bpm, PEBO=193/93 mmhg, SpO2=96.0 %, Resp=15 B/min, Comment=SR 03:28 PM Balloon inflated @ 20 brian for 10 seconds dspell 03:29 PM Balloon catheter removed intact. dspell 03:30 PM Guide wire removed intact. dspell 03:30 PM Guide catheter removed intact. dspell 03:30 PM Procedure completed at 15:30 dspellman 03:31 PM HR=94 bpm, WJQO=381/95 mmhg, SpO2=96.0 %, Resp=13 B/min, Comment=SR 03:32 PM Sign out completed: Radiation Dose 728.44 mGy Fluoro Time: 5.6 Isovue 370 - 200ml contrast 122 ml given by Evan Toussaint MD, [facility]. Complications: NoneCardiac Rehab Consult needed: Yes confirmed administered medications: Yes [email or web address] 03:32 PM Arterial sheath pulled, Vasc Band closure device used and was Successful S/N. dspell 03:32 PM 12 ml air in Vasc Band. dspellman 03:33 PM Post ECG NSR dspellman 03:33 PM Post Blood Pressure 150/95 dspellman 03:34 PM 15:33 Post Pulses Lt Radial 2+ dspellman 03:34 PM Information taught Cardiac Cath, PCI, and Vasc Band dspell 03:34 PM Education needs Procedure, Plan of Care, and Responsibilities of Patient in Care dspell 03:35 PM Time: 15:35 Plavix 300 mg Orally Given by Madhavi Mcwilliams RN dspell 03:35 PM HR=66 bpm, AFHD=420/188 mmhg, SpO2=97.0 %, Resp=11 B/min 03:36 PM Learning barriers :None ell 03:36 PM Education Methods Verbal ell 03:36 PM Education evaluation Able to repeat information ell 03:36 PM Site status No bleeding/hematoma - Lt Wrist as reported by Shanon Sorto RT at 15:36 dspell 03:37 PM Sites, Elayne RT (R) Position: Manager Contact Time in: 15:36 dsp 03:39 PM Patient out of room: 15:39 dspell 03:40 PM Complications: None 03:40 PM Fluoro Time: 5.6 03:40 PM Isovue 370 - 200ml contrast 122 ml given by Evan Toussaint MD, [facility]. 03:40 PM Radiation Dose 728.44 mGy dspell 03:45 PM Report called to Guille REGAN [facility] 04:07 PM Delay to floor Bed availability dspell 04:07 PM Patient out of room: 16:07 to 2NE 21 Family [facility] Complications Complication None None Hemodynamics Pressures Site Systolic/A Wave Diastolic/V Wave Mean AO 117 97 108 AO 114 93 105 LV 116 -6 5 AO 123 81 102 AO 114 74 92 AO 100 64 82 AO 92 56 74 Post Procedure Information Blood Pressure: 150/95 mmHg Rhythm: NSR Post procedural instructions were given Closure Device Time Device Success/Fail 10/15/2016 3:45:00 PM MynxGrip Successful Site Checks Time Location Status Staff Sheath In? Note 03:36 PM Lt Wrist No bleeding/hematoma Shanon Sorto RT 03:45 PM Lt Wrist No bleeding/ No Hematoma Madhavi Mcwilliams RN 04:03 PM Lt Wrist No bleeding/ No Hematoma Sites, Elayne RT (R) 2cc of air removed from vacs band Pulses Time Site Pre-Procedure Post-Procedure Note 10/15/2016 2:28:00 PM Bilateral radial 2+ 10/15/2016 2:28:00 PM Bilateral DP \\T\\ PT 2+ 3:33:00 PM Lt Radial 2+ 10/15/2016 3:45:00 PM Lt Radial 1+ 10/15/2016 4:04:00 PM Lt Radial 1+ Updated by RT Anthony (R) on 10/19/2016 4:36:12 PM Leslie Fraser RT electronically signed on 10/19/2016 4:36:51 PM with status of Final
== END 2016-10-16 12:15 | disposition home or self-care (01) ==
LOC: EMEROO 10:53 → 2NENU 14:00
PROVIDERS: ADMIT Emergency Medicine; ATTEND Emergency Medicine

== ENCOUNTER 2017-12-08 12:07 | Observation (INO) ==
[2017-12-08] MEDS ORDERED: Ondansetron 4 MG/2 ML VIAL IVP ONE (12:27)
--- NOTE | 2017-12-08 12:41 | Emergency Department Note ---
Disposition Clinical Impression: Chest pain Qualifiers: Chest pain type: unspecified Qualified Code(s): R07.9 - Chest pain, unspecified Disposition: Admitted As Inpatient Condition: Fair Time of Disposition: 14:22 Chest Pain HPI - General Chief Complaint: ED Chest Pain Stated Complaint: CHEST PAIN Time Seen by Provider: 12/08/17 12:18 Source: patient Limitations: no limitations Vital Signs Reviewed: Yes Nursing Notes Reviewed: Yes - History of Present Illness HPI Narrative: Patient is a 47-year-old male who presents to [facility] ED with a chief complaint of chest tightness. States his symptoms started this morning. Dates he recently had a dental infection and was started on amoxicillin yesterday. He got up this morning and tried have breakfast but was nauseated. States he thought this was probably secondary to the antibiotic. He also states he felt little short of breath and the chest tightness started. Pt complaint: chest pain Onset (ago): hour(s) Duration: constant Onset: during rest Pain Location: substernal Severity: moderate Severity scale (1-10): 5 Quality: tightness Pain Radiation: LUE Improves with: nothing Worsens with: nothing Associated symptoms: Reports: nausea, vomiting, dyspnea. Denies: fever, cough Treatments prior to arrival chest pain: aspirin - Related Data Home Medications Medication Instructions Recorded Confirmed Clopidogrel [Plavix] 75 mg PO DAILY 10/15/16 12/08/17 Esomeprazole Magnesium [Nexium] 40 mg PO DAILY 10/15/16 12/08/17 Fluticasone Propionate Nasal 2 spr NS DAILY PRN 10/15/16 12/08/17 [Flonase] Garlic [Odorless Garlic] 300 mg PO DAILY 10/15/16 12/08/17 Loratadine [Claritin] 10 mg PO DAILY PRN 10/15/16 12/08/17 Metoprolol [Lopressor] 25 mg PO BID 10/15/16 12/08/17 Multivits,Ca,Min/Iron/FA/Lycop 1 each PO DAILY 10/15/16 12/08/17 [Men Under 50 Multivitamin Tab] [place]-3/Dha/Epa/Fish Oil [Fish Oil 1,000 mg PO DAILY 10/15/16 12/08/17 1,000 mg Softgel] Testosterone Cypionate 200 mg IM Q2W 10/15/16 12/08/17 [Depo-Testosterone] Amoxicillin [Amoxil] 500 mg PO TID 12/08/17 12/08/17 Furosemide [Lasix] 20 mg PO DAILY 12/08/17 12/08/17 Potassium Chloride [Klor-Con 10 meq PO DAILY 12/08/17 12/08/17 Sprinkle] Tadalafil [Cialis] 10 mg PO DAILY PRN 12/08/17 12/08/17 Previous Rx's Medication Instructions Recorded Aspirin 81 mg PO DAILY tab.chew 10/16/16 Atorvastatin [Lipitor] 80 mg PO HS #30 tablet 10/16/16 Fenofibrate [Tricor] 54 mg PO DAILY #30 tablet 10/16/16 Nitroglycerin 0.4 mg SL Q5MIN #30 tab.subl 10/16/16 Allergies Allergy/AdvReac Type Severity Reaction Status Date / Time morphine AdvReac Vomiting Verified 12/08/17 13:55 All systems ED: reviewed and negative except as stated. Chest Pain PMH - Past Medical History Medical history: Reports: hypertension, myocardial infarction Psychiatric history: Reports: no psych history - Social History Smoking Status: Never smoker Alcohol use: Reports: occasionally Drug use: Reports: none Physical Exam - General Limitations: no limitations General appearance: alert, in no apparent distress - Head Head exam: atraumatic, normocephalic, normal inspection - Eye Eye exam: Present: EOMI - ENT ENT exam: normal exam, normal oropharynx, mucous membranes moist - Neck Neck exam: Present: normal inspection, full ROM, trachea midline - Chest Chest inspection: Present: normal inspection, symmetric chest wall rise - Respiratory Respiratory exam: Present: normal lung sounds bilaterally - Cardiovascular Cardiovascular exam: Present: regular rate, normal rhythm, normal heart sounds - Abdominal Exam Abdominal exam: Present: soft, Non-Tender. Absent: tenderness, distention, guarding, rebound, rigidity - Extremities Exam Extremities exam: Present: normal inspection, full ROM. Absent: tenderness, pedal edema - Back Exam Back exam: Present: normal inspection, full ROM. Absent: tenderness - Neurological Exam Neurological exam: Present: alert, oriented X3 - Psychiatric Psychiatric exam: Present: normal affect, normal mood - Skin Skin exam: Present: warm, dry, intact, normal color Course Course Narrative: Patient seen and examined. Chest tightness that started this morning along with some difficulty breathing and nausea and vomiting. History of CAD with one stent. Cardiopulmonary workup initiated. We will give a full dose aspirin as well as nitroglycerin. We will likely admit for cardiac workup. - Reevaluation(s) Reevaluation #1: Patient's chest pain resolved with the nitroglycerin. We will admit for cardiac workup. I discussed with the hospitalist Dr. Wilkerson who has accepted patient for admission. Time: 14:21 Vital Signs Temperature 97.9 F 12/08/17 12:13 Pulse Rate 68 12/08/17 12:13 Respiratory Rate 18 12/08/17 12:13 Blood Pressure 150/91 12/08/17 12:13 O2 Sat by Pulse Oximetry 96 12/08/17 12:13 Temperature 97.9 F 12/08/17 12:13 Pulse Rate 63 12/08/17 12:57 Respiratory Rate 18 12/08/17 12:57 Blood Pressure 122/66 12/08/17 12:57 O2 Sat by Pulse Oximetry 93 12/08/17 12:57 Oxygen Delivery Oxygen Delivery Room Air Chest Pain - Medical Records Medical records reviewed: Yes I reviewed the patient's medical records. - Lab Data Lab results reviewed: Yes I reviewed the patient's lab results. Result diagrams: 12/08/17 12:17 12/08/17 12:17 Lab Results 12/08/17 12/08/17 Range/Units 12:17 12:17 WBC 9.2 (4.3-11.1) K/mcL RBC 6.16 H (4.19-5.50) M/mcL Hgb 19.4 H (12.9-16.9) g/dL Hct 55.6 H (37.5-50.1) % MCV 90.3 (83.0-100.0) fL MCH 31.5 (28.0-33.3) pg MCHC 34.9 (31.6-35.5) g/dL RDW 13.2 (11.5-14.5) % Plt Count 209 (140-400) K/mcL MPV 10.4 (9.4-12.4) fL Immature Gran % 0.7 (0-4) % Seg Neutrophils % 78.3 % Lymphocytes % 14.3 % Monocytes % 5.5 % Eosinophils % 1.0 % Basophils % 0.2 % Neutrophils # 7.2 (1.6-8.9) K/mcL Lymphocytes # 1.3 (0.6-4.6) K/mcL Monocytes # 0.5 (0.0-1.3) K/mcL Eosinophils # 0.1 (0.0-0.6) K/mcL Basophils # 0.0 (0.0-0.2) K/mcL Sodium 133 L (136-145) mEq/L Potassium 4.2 (3.5-5.1) mEq/L Chloride 99 (98-107) mEq/L Carbon Dioxide 28 (23-29) mEq/L BUN 14 (6-20) mg/dL Creatinine 0.96 (0.70-1.30) mg/dL Est GFR ( Amer) > 60 (> 60) Est GFR (Non-Af Amer) > 60 (> 60) BUN/Creatinine Ratio 15 (6-26) Glucose 136 H (70-105) mg/dL Calculated Osmolality 279 L (280-300) Calcium 9.6 (8.6-10.3) mg/dL Troponin I 0.03 (< 0.04) ng/mL - Radiology Data Radiology results reviewed: Yes I reviewed the patient's radiology results. Chest X-Ray 12/08/17 12:25 IMPRESSION: No acute cardiopulmonary disease D/ / Robin Pinto MD / Robin Pinto MD Interpreting Provider: Robin Pinto MD - EKG Data EKG attestation: Yes I reviewed and interpreted this EKG. EKG results narrative: EKG done at 1214 shows normal sinus rhythm with a rate of [address] elevation or depression. [place] deviation. Inverted T waves noted in leads 3 and aVF. These appear unchanged from prior EKG done 11/14/2016. Heart Score - Score History: Moderately Suspicious EKG: Non Specific repolarisation Disturbance Age: 45-65 Risk Factors: Equal/Greater than 3 risk factor or history of atherosclerotic disease Troponin: Less than normal limit HEART Score Total: 5
[2017-12-08] MEDS: Aspirin 81 MG TAB.CHEW PO STA ×2 (12:45→12:52)
[2017-12-08] MEDS: Nitroglycerin 0.4 MG TAB.SUBL SL ONE ×2 (12:47→12:53)
[2017-12-08 13:04] LABS: BUN/Creatinine Ratio 15 (6-26); Blood Urea Nitrogen 14 mg/dL (6-20); Calcium 9.6 mg/dL (8.6-10.3); Carbon Dioxide 28 mEq/L (23-29); Chloride 99 mEq/L (98-107); Glucose 136 mg/dL (70-105); Osmolality,Calculated 279 (280-300); Potassium 4.2 mEq/L (3.5-5.1); Sodium 133 mEq/L (136-145); Troponin I 0.03 ng/mL (< 0.04); eGFR For Non-African Americans > 60 (> 60)
--- NOTE | 2017-12-08 13:46 | Emergency Department Note ---
Disposition Clinical Impression: Chest pain Qualifiers: Chest pain type: unspecified Qualified Code(s): R07.9 - Chest pain, unspecified Disposition: Admitted As Inpatient Condition: Fair General Adult HPI - General Chief complaint: ED Chest Pain Stated complaint: CHEST PAIN Time Seen by Provider: 12/08/17 12:18 Source: patient Limitations: no limitations - History of Present Illness Pain Scale: 5 - Related Data Home Medications Medication Instructions Recorded Confirmed Clopidogrel [Plavix] 75 mg PO DAILY 10/15/16 12/08/17 Esomeprazole Magnesium [Nexium] 40 mg PO DAILY 10/15/16 12/08/17 Fluticasone Propionate Nasal 2 spr NS DAILY PRN 10/15/16 12/08/17 [Flonase] Garlic [Odorless Garlic] 300 mg PO DAILY 10/15/16 12/08/17 Loratadine [Claritin] 10 mg PO DAILY PRN 10/15/16 12/08/17 Metoprolol [Lopressor] 25 mg PO BID 10/15/16 12/08/17 Multivits,Ca,Min/Iron/FA/Lycop 1 each PO DAILY 10/15/16 12/08/17 [Men Under 50 Multivitamin Tab] [place]-3/Dha/Epa/Fish Oil [Fish Oil 1,000 mg PO DAILY 10/15/16 12/08/17 1,000 mg Softgel] Testosterone Cypionate 200 mg IM Q2W 10/15/16 12/08/17 [Depo-Testosterone] Amoxicillin [Amoxil] 500 mg PO TID 12/08/17 12/08/17 Furosemide [Lasix] 20 mg PO DAILY 12/08/17 12/08/17 Potassium Chloride [Klor-Con 10 meq PO DAILY 12/08/17 12/08/17 Sprinkle] Tadalafil [Cialis] 10 mg PO DAILY PRN 12/08/17 12/08/17 Previous Rx's Medication Instructions Recorded Aspirin 81 mg PO DAILY tab.chew 10/16/16 Atorvastatin [Lipitor] 80 mg PO HS #30 tablet 10/16/16 Fenofibrate [Tricor] 54 mg PO DAILY #30 tablet 10/16/16 Nitroglycerin 0.4 mg SL Q5MIN #30 tab.subl 10/16/16 Allergies Allergy/AdvReac Type Severity Reaction Status Date / Time morphine AdvReac Vomiting Verified 12/08/17 13:55 Past Medical History - Past Medical History Medical history: Reports: hypertension, myocardial infarction Psychiatric history: Reports: no psych history - Social History Smoking Status: Never smoker Smokeless Tobacco Status: No Alcohol use: Reports: occasionally Drug use: Reports: none Physical Exam - General Limitations: no limitations General appearance: alert, in no apparent distress Course Vital Signs Temperature 97.9 F 12/08/17 12:13 Pulse Rate 68 12/08/17 12:13 Respiratory Rate 18 12/08/17 12:13 Blood Pressure 150/91 12/08/17 12:13 O2 Sat by Pulse Oximetry 96 12/08/17 12:13 Temperature 98 F 12/08/17 14:52 Pulse Rate 58 12/08/17 14:52 Respiratory Rate 15 12/08/17 14:52 Blood Pressure 129/73 12/08/17 14:52 O2 Sat by Pulse Oximetry 96 12/08/17 14:52 Oxygen Delivery Oxygen Delivery Room Air Medical Decision Making - Lab Data Result diagrams: 12/08/17 12:17 12/08/17 12:17 Lab Results 12/08/17 12/08/17 Range/Units 12:17 12:17 WBC 9.2 (4.3-11.1) K/mcL RBC 6.16 H (4.19-5.50) M/mcL Hgb 19.4 H (12.9-16.9) g/dL Hct 55.6 H (37.5-50.1) % MCV 90.3 (83.0-100.0) fL MCH 31.5 (28.0-33.3) pg MCHC 34.9 (31.6-35.5) g/dL RDW 13.2 (11.5-14.5) % Plt Count 209 (140-400) K/mcL MPV 10.4 (9.4-12.4) fL Immature Gran % 0.7 (0-4) % Seg Neutrophils % 78.3 % Lymphocytes % 14.3 % Monocytes % 5.5 % Eosinophils % 1.0 % Basophils % 0.2 % Neutrophils # 7.2 (1.6-8.9) K/mcL Lymphocytes # 1.3 (0.6-4.6) K/mcL Monocytes # 0.5 (0.0-1.3) K/mcL Eosinophils # 0.1 (0.0-0.6) K/mcL Basophils # 0.0 (0.0-0.2) K/mcL Sodium 133 L (136-145) mEq/L Potassium 4.2 (3.5-5.1) mEq/L Chloride 99 (98-107) mEq/L Carbon Dioxide 28 (23-29) mEq/L BUN 14 (6-20) mg/dL Creatinine 0.96 (0.70-1.30) mg/dL Est GFR ( Amer) > 60 (> 60) Est GFR (Non-Af Amer) > 60 (> 60) BUN/Creatinine Ratio 15 (6-26) Glucose 136 H (70-105) mg/dL Calculated Osmolality 279 L (280-300) Calcium 9.6 (8.6-10.3) mg/dL Troponin I 0.03 (< 0.04) ng/mL Attestation Statement - Attestation Attestation: I examined this patient and my medical decision-making was reviewed with the Resident Physician. I agree with the documented findings, disposition and treatment plan as described except to the extent set forth below. Patient with history of coronary disease status post stenting presents with chest pain this morning that in some ways replicates his prior ischemic pain. Currently pain-free after nitroglycerin. Nonspecific abnormalities on his EKG are consistent with his prior EKGs, no acute changes. Set multiple EKGs in the ED, none of which demonstrate any changes from his baseline. First troponin is negative.HEART score is 5. Arranging for admission.
[2017-12-08 13:48] LABS: Basophils % 0.2 %; Eosinophils # 0.1 K/mcL (0.0-0.6); Hematocrit 55.6 % (37.5-50.1); Hemoglobin 19.4 g/dL (12.9-16.9); Immature Granulocytes % 0.7 % (0-4); Lymphocytes # 1.3 K/mcL (0.6-4.6); Lymphocytes % 14.3 %; Mean Corpuscular HGB Conc 34.9 g/dL (31.6-35.5); Mean Corpuscular Hemoglobin 31.5 pg (28.0-33.3); Mean Corpuscular Volume 90.3 fL (83.0-100.0); Mean Platelet Volume 10.4 fL (9.4-12.4); Monocytes # 0.5 K/mcL (0.0-1.3); Monocytes % 5.5 %; Neutrophils # 7.2 K/mcL (1.6-8.9); Platelet Count 209 K/mcL (140-400); Red Blood Count 6.16 M/mcL (4.19-5.50); Red Cell Distribution Width 13.2 % (11.5-14.5); Segmented Neutrophils % 78.3 %
[2017-12-08] MEDS ORDERED: Naloxone 0.4 MG/ML INJ IVP PRN (16:11)
[2017-12-08] MEDS ORDERED: Nitroglycerin 0.4 MG TAB.SUBL SL PRN (16:20)
[2017-12-08] MEDS ORDERED: Ondansetron 4 MG/2 ML VIAL IVP PRN (16:20)
--- NOTE | 2017-12-08 16:38 | Electrocardiograph Report ---
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
[2017-12-08] MEDS ORDERED: Fluticasone Propionate Nasal 50 MCG/SPRAY BOTTLE NS PRN (16:49)
[2017-12-08] MEDS ORDERED: Loratadine 10 MG TABLET PO PRN (16:49)
--- NOTE | 2017-12-08 16:49 | Internal Med History&Physical ---
<Katerin Contreras M - Last Filed: 12/08/17 18:00> Date of Encounter: 12/08/17 Time of Encounter: 16:47 Internal Medicine - H&P: HPI Chief complaint: chest pain Admitted From: Emergency Dept History of present illness: Mr. Mercedes is a 47 year old male with history of CAD s/p stent in 2017, HTN, HLD, HTN, and GERD who presented to the ED on 12/08/17 with complaints of chest pain, shortness of breath, and elevated blood pressure. He states this morning he woke up feeling fatigued but went to work. At work, he attempted to eat breakfast at which time he began to experience significant nausea, diaphoresis, and shortness of breath. Throughout the day he continued to experience intermittent pain in his chest which he described as burning, along with nausea , and fatigue. He took his blood pressure which was elevated in 150s/90s. Additionally, over the last week he has had an increased amount of fluid in his legs and has been taking his prn lasix daily. He states these symptoms are very similar to his episode of ACS that required a stent last year. He otherwise states he is on amoxicillin and [place] as he had a tooth pulled and has stitches. He believes the norco may have blunted the pain in his arm. His pain is currently resolved after Nitro and nausea resolved after Zofran. EKG and Chest XR were unremarkable. Troponin 0.03. Past Med Surg Social Fam HX - Past Medical History Source: patient Medical history: coronary artery disease, GERD, hyperlipidemia, hypertension, myocardial infarction, other (low testosterone) Additional medical history: CT x4 Psychiatric history: no psych history - Past Surgical History Surgical History: angioplasty/stent, tonsilectomy Additional surgical history: wisdom teeth removal - Social History Smoking Status: Never smoker Smokeless Tobacco Status: No Alcohol use: occasionally Drug use: none Occupational status: employed Current living situation: Home - Independent Activity Level: Independent ambulation - Family History Father Living Status: Still Living Hx Family Cardiac Disorders: Yes Hx Family Respiratory Disorders: No Hx Family Cancer: Yes Hx Family GI Disorders: No Hx Family Endocrine Disorder: No Internal Medicine - H&P: Meds Clopidogrel [Plavix] 75 mg PO DAILY 10/15/16 [History] Esomeprazole Magnesium [Nexium] 40 mg PO DAILY 10/15/16 [History] Fluticasone Propionate Nasal [Flonase] 2 spr NS DAILY PRN 10/15/16 [History] Garlic [Odorless Garlic] 300 mg PO DAILY 10/15/16 [History] Loratadine [Claritin] 10 mg PO DAILY PRN 10/15/16 [History] Metoprolol [Lopressor] 25 mg PO BID 10/15/16 [History] Multivits,Ca,Min/Iron/FA/Lycop [Men Under 50 Multivitamin Tab] 1 each PO DAILY 10/15/16 [History] [place]-3/Dha/Epa/Fish Oil [Fish Oil 1,000 mg Softgel] 1,000 mg PO DAILY 10/15/16 [History] Testosterone Cypionate [Depo-Testosterone] 200 mg IM Q2W 10/15/16 [History] Aspirin 81 mg PO DAILY tab.chew 10/16/16 [Rx] Atorvastatin [Lipitor] 80 mg PO HS #30 tablet 10/16/16 [Rx] Fenofibrate [Tricor] 54 mg PO DAILY #30 tablet 10/16/16 [Rx] Nitroglycerin 0.4 mg SL Q5MIN #30 tab.subl 10/16/16 [Rx] Amoxicillin [Amoxil] 500 mg PO TID 12/08/17 [History] Furosemide [Lasix] 20 mg PO DAILY 12/08/17 [History] Potassium Chloride [Klor-Con Sprinkle] 10 meq PO DAILY 12/08/17 [History] Tadalafil [Cialis] 10 mg PO DAILY PRN 12/08/17 [History] 3 Allergy/AdvReac Type Severity Reaction Status Date / Time morphine AdvReac Vomiting Verified 12/08/17 13:55 All Systems PM: A 10-system review of systems was performed and is negative for pertinent findings except as documented above in the HPI. - Constitutional Constitutional: excessive sweating, fatigue, no chills, no fever(s) - EENT Eyes: no change in vision, no seeing flashes - Cardiovascular Cardiovascular ROS IM: chest pain, diaphoresis, dyspnea, dyspnea on exertion, edema, no irregular heart rhythm, no palpitations, no syncope - Respiratory Respiratory: dyspnea on exertion, no cough, no wheezing - Gastrointestinal Gastrointestinal: no abdominal pain, no diarrhea, no hematochezia, no melena - Genitourinary Genitourinary ROS male: no difficulty urinating, no dysuria, no hematuria - Musculoskeletal Musculoskeletal ROS IM: no arthralgias, no numbness, no tingling - Neurological Neurological ROS: no confusion, no dizziness, no focal weakness - Constitutional Vitals: Temp Pulse Resp BP Pulse Ox 98 F 58 15 129/73 96 12/08/17 14:52 12/08/17 14:52 12/08/17 14:52 12/08/17 14:52 12/08/17 16:01 General appearance: Present: A&O X 3, pleasant, no acute distress Exam: pleasant, not on oxygen - Head Head exam: Present: atraumatic, normocephalic - ENT ENT exam: Present: mucous membranes moist Additional comments: right lower tooth removed, no evidence of acute hemorrhage - Neck Neck exam general surgery: Present: full ROM, normal inspection - Respiratory Respiratory exam: Present: CTAB. Absent: accessory muscle use, rales, rhonchi, wheezes - Cardiovascular Cardiovascular exam: Present: RRR, +S1, +S2. Absent: diastolic murmur, gallop, irregular rhythm, rubs, systolic murmur - GI/Abdominal GI/Abdominal exam: Present: normal bowel sounds, soft, no peritoneal signs. Absent: distended, guarding, tenderness - Extremities Exam Extremities exam: Present: warm, radial pulses palpable and symmetrical. Absent : calf tenderness, cyanotic, pedal edema - Neurological Exam Neurological exam: Present: alert, oriented X3 - Psychiatric Psychiatric exam: Absent: anxious, flat affect Internal Med - H&P Results - Labs CBC & Chem 7: 12/08/17 16:44 12/08/17 16:44 - Impressions Chest X-Ray 12/08/17 12:25 IMPRESSION: No acute cardiopulmonary disease D/ / Robin Pinto MD / Robin Pinto MD Interpreting Provider: Robin Pinto MD - Assessment and plan (1) Chest pain Current Visit: Yes Status: Acute Assessment and plan: - History of stent placed 10/15/16 - First troponin 0.03, will repeat q 6 hours for a total of three - Will obtain exercise stress test in the morning - NPO at midnight, otherwise cardiac diet - Given increased edema recently, will also evaluate for CHF with echocardiogram, most recent echo in 2017 showed EF of 60% - Nitro prn for pain Qualifiers: Chest pain type: unspecified Qualified Code(s): R07.9 - Chest pain, unspecified (2) CAD (coronary artery disease) Current Visit: No Status: Acute Assessment and plan: - Continue plavix 75mg and ASA 81mg Qualifiers: Coronary Disease-Associated Artery/Lesion type: [place] artery [place] vs. transplanted heart: [place] heart Associated angina: with unstable angina Qualified Code(s): I25.110 - Atherosclerotic heart disease of [place] coronary artery with unstable angina pectoris (3) HTN (hypertension) Current Visit: Yes Status: Acute Assessment and plan: - Continue home metoprolol 25mg BID Qualifiers: Hypertension type: unspecified Qualified Code(s): I10 - Essential (primary ) hypertension (4) Status post tooth extraction Current Visit: Yes Status: Acute Assessment and plan: - Continue amoxicillin and monitor for signs of bleeding (5) Hyperlipidemia Current Visit: No Status: Acute Assessment and plan: - Continue on home fenofibrate and lipitor 80mg Qualifiers: Hyperlipidemia type: mixed hyperlipidemia Qualified Code(s): E78.2 - Mixed hyperlipidemia (6) GERD (gastroesophageal reflux disease) Current Visit: Yes Status: Chronic Assessment and plan: - Continue home omeprazole 40mg Qualifiers: Esophagitis presence: esophagitis presence not specified Qualified Code(s) : K21.9 - Gastro-esophageal reflux disease without esophagitis - Time Spent With Patient Total time spent is greater than 50% in coordination of care (as documented) at patient's floor/unit and/or counseling patient: 25 - 35 minutes <Dolores Mullins - Last Filed: 12/08/17 18:07> Date of Encounter: 12/08/17 Internal Medicine - H&P: HPI History of present illness: Mr. Mercedes is a 47 year old male All Systems PM: A 10-system review of systems was performed and is negative for pertinent findings except as documented above in the HPI. - Constitutional Vitals: Temp Pulse Resp BP Pulse Ox 98 F 58 15 129/73 96 12/08/17 14:52 12/08/17 14:52 12/08/17 14:52 12/08/17 14:52 12/08/17 16:01 Internal Med - H&P Results - Labs CBC & Chem 7: 12/08/17 16:44 12/08/17 16:44 Labs: Short CBC 12/08/17 Range/Units 16:44 WBC 7.6 (4.3-11.1) K/mcL Hgb 18.6 H (12.9-16.9) g/dL Hct 54.2 H (37.5-50.1) % Plt Count 197 (140-400) K/mcL BMP 12/08/17 16:44 Sodium 134 L Potassium 4.2 Chloride 100 Carbon Dioxide 30 H BUN 13 Creatinine 0.97 Glucose 102 Calcium 9.4 Liver Function 12/08/17 Range/Units 16:44 Total Bilirubin 0.6 (0.3-1.0) mg/dL AST 27 (13-39) Units/L ALT 31 (7-52) Units/L Alkaline Phosphatase 72 (34-104) Units/L Albumin 4.4 (3.5-5.7) g/dL - Time Spent With Patient Total time spent is greater than 50% in coordination of care (as documented) at patient's floor/unit and/or counseling patient: - Attending Attestation I examined this patient and my medical decision-making was reviewed with the Resident Physician Dr. Contreras. I agree with the documented findings, disposition and treatment plan as described except to the extent set forth below. Mr. Mercedes is a 47 year old male with history of single vessel CAD s/p stent in 2017, HTN, HLD, HTN, and GERD who presented to the ED on 12/08/17 with complaints of chest pain, shortness of breath, and elevated blood pressure. He states this morning he woke up feeling fatigued but went to work. At work, he attempted to eat breakfast at which time he began to experience significant nausea, diaphoresis, and shortness of breath. He denied any active CP now. However he did mention some chest discomfort earlier. Gen: A, A, O x 3 Chest: Diminished BS b/l no crackles Heart: S1S2+ RRR No murmurs Ext 1+ edema a/p 1. Acute chest pain atypical presentation however still high risk for ACS will check serial trop stress test in AM resumed home meds 2. Chronic diastolic CHF not in exacerbation however few days ago he had some symptoms and started taking lasix will check 2 D Echo in Am
[2017-12-08 17:12] LABS: Hematocrit 54.2 % (37.5-50.1); Hemoglobin 18.6 g/dL (12.9-16.9); Mean Corpuscular HGB Conc 34.3 g/dL (31.6-35.5); Mean Corpuscular Volume 90.3 fL (83.0-100.0); Mean Platelet Volume 10.2 fL (9.4-12.4); Platelet Count 197 K/mcL (140-400); Red Cell Distribution Width 13.1 % (11.5-14.5)
[2017-12-08 17:29] LABS: Alanine Aminotransferase 31 Units/L (7-52); Albumin 4.4 g/dL (3.5-5.7); Albumin/Globulin Ratio 1.8 (1.1-2.2); Alkaline Phosphatase 72 Units/L (34-104); Aspartate Amino Transferase 27 Units/L (13-39); BUN/Creatinine Ratio 13 (6-26); Bilirubin,Total 0.6 mg/dL (0.3-1.0); Blood Urea Nitrogen 13 mg/dL (6-20); Calcium 9.4 mg/dL (8.6-10.3); Carbon Dioxide 30 mEq/L (23-29); Chloride 100 mEq/L (98-107); Globulin 2.4 g/dL (2.4-3.5); Glucose 102 mg/dL (70-105); Osmolality,Calculated 278 (280-300); Potassium 4.2 mEq/L (3.5-5.1); Sodium 134 mEq/L (136-145); Total Protein 6.8 g/dL (6.4-8.9); eGFR For Non-African Americans > 60 (> 60)
--- NOTE | 2017-12-08 17:36 | Electrocardiograph Report ---
[facility] Test Date: 2017-12-08 Pat Name: Ehsan Mercedes Department: Room: 3A33 Gender: M Cnc Specialist: : 1970 Requested By: Lizz Vick Order Number: [id number] Reading MD: Milo Roldan Measurements Intervals [place] Rate: 70 P: 53 ND: 194 QRS: -39 QRSD: 90 T: -11 QT: 373 QTc: 403 Interpretive Statements Sinus rhythm Left axis deviation Nonspecific T abnormalities, inferior leads Electronically Signed On 12-08-2017 17:34:46 EDT by Milo Roldan
[2017-12-08 18:23] LABS: Troponin I 0.03 ng/mL (< 0.04)
[2017-12-08] MEDS: Amoxicillin 500 MG CAPSULE PO SCH (20:58)
[2017-12-09 02:07] LABS: INR 1.1; Prothrombin Time 12.2 Seconds (9.4-12.1)
[2017-12-09] MEDS ORDERED: Fenofibrate 54 MG TABLET PO SCH (09:00)
[2017-12-09] MEDS ORDERED: Aspirin 81 MG TAB.CHEW PO SCH (09:00)
[2017-12-09] MEDS: Amoxicillin 500 MG CAPSULE PO SCH (09:55)
[2017-12-09 10:50] VITALS: BP 138/89
--- NOTE | 2017-12-09 11:00 | Discharge Summary ---
<Katerin Contreras M - Last Filed: 12/09/17 15:04> - NOTES TO OUTPATIENT PROVIDER Notes to Outpatient Provider: Echo completed 12/09/17 revealed EF of 60-65%. Exercise stress test negative on same date. Orders not resulted at time of discharge: Pending orders 12/08/17 05:59 NM yolanda perf SPECT multi [NM] Routine Date of Encounter: 12/09/17 Time of Encounter: 10:58 - Discharge Diagnosis (1) Chest pain Priority: Primary Status: Acute Assessment and Plan: Chest X-Ray 12/08/17 12:25 IMPRESSION: No acute cardiopulmonary disease D/ / Robin Pinto MD / Robin Pinto MD Interpreting Provider: Robin Pinto MD Echocardiogram 12/09/17 16:46 Impressions: Normal LV size and function. LVEF=60 %. No LVH. Normal RV size and function. Normal LA and RA size. No hemodynamically significant valvular abnormality. Normal CVP, No pulmonary hypertension. No interatrial shunt on saline contrast study. Left Ventricular Wall Motion: Rest Echo Findings All wall segments showed normal motion. Findings: Study Quality * Technically adequate exam. ECG Findings * Normal sinus rhythm. Left Ventricle * LVEF 60%. * Normal LV chamber size, wall thickness and function. Right Ventricle * Normal right ventricular structure and function. Left Atrium * Normal left atrial size. Right Atrium * Normal right atrial size. Interatrial Septum * No evidence of PFO with agitated saline contrast. Aortic Valve * Trileaflet aortic valve. * Trileaflet aortic valve with normal function. Mitral Valve * Trace mitral regurgitation. Tricuspid Valve * Trace tricuspid regurgitation. Pulmonic Valve * Normal pulmonic valve structure and function. Aorta * Normally sized aortic root. Pericardium * The pericardium appears normal. IVC * Normal IVC dimensions and inspiratory collapse. Qualifiers: Chest pain type: unspecified Qualified Code(s): R07.9 - Chest pain, unspecified (2) CAD (coronary artery disease) Priority: Secondary Status: Acute Qualifiers: Coronary Disease-Associated Artery/Lesion type: [place] artery [place] vs. transplanted heart: [place] heart Associated angina: with unstable angina Qualified Code(s): I25.110 - Atherosclerotic heart disease of [place] coronary artery with unstable angina pectoris (3) HTN (hypertension) Priority: Secondary Status: Acute Qualifiers: Hypertension type: unspecified Qualified Code(s): I10 - Essential (primary ) hypertension (4) Status post tooth extraction Priority: Secondary Status: Acute (5) Hyperlipidemia Priority: Secondary Status: Acute Qualifiers: Hyperlipidemia type: mixed hyperlipidemia Qualified Code(s): E78.2 - Mixed hyperlipidemia (6) GERD (gastroesophageal reflux disease) Priority: Secondary Status: Chronic Qualifiers: Esophagitis presence: esophagitis presence not specified Qualified Code(s) : K21.9 - Gastro-esophageal reflux disease without esophagitis Hospital course: Mr. Mercedes is a 47 year old male with history of acute ND requiring angioplasty in 2017, GERD, hyperlipidemia, hypertension, and low testosterone who presented to the emergency department on 12/08/17 with complaints of shortness of breath, chest pain, nausea and diaphoresis. The patient's pain was relieved after 2 doses of nitroglycerin and 1 dose of Zofran. Initial troponin was 0.03 and EKG was unremarkable. Chest x-ray also unremarkable. Patient was admitted for ACS rule out. Exercise stress test revealed no evidence of acute ischemia and echo revealed normal EF of 60% without any evidence of wall motion abnormalities. Troponins were trended and were flat 3 at 0.03. During his hospitalization the patient's pain did not recur and he feels well. Encourage the patient to follow up with his primary care physician and his research biologist Dr. Toussaint within the next week. His medications were not changed. It is likely this was a result of his GERD. He is also been on amoxicillin after a tooth was pulled which may be contributing to his nausea. Return precautions were given including shortness of breath, chest pain, continued nausea, lower extremity edema or any other symptoms worrisome to him. The patient agrees with and understands his course of treatment plan including plan for discharge and follow-up. All questions answered. Discharge discussed with: patient, family, nurse - Time Spent with Patient Total time spent providing and/or coordinating discharge services: Greater than 30 minutes - Discharge Medications Allergies/Adverse Reactions: 3 Allergy/AdvReac Type Severity Reaction Status Date / Time morphine AdvReac Vomiting Verified 12/08/17 13:55 Date of admission: 12/08/17 13:59 Primary care physician: Zahida Mendez Discharging clinician: Katerin Contreras Anticipated date of discharge: 12/09/17 - Constitutional Vitals: Temp Pulse Resp BP Pulse Ox 98.4 F 67 14 138/89 96 12/09/17 10:47 12/09/17 10:47 12/09/17 10:47 12/09/17 10:47 12/09/17 10:47 General appearance: Present: A&O X 3, pleasant, no acute distress Exam: General: Conversant white male in no Apparent Distress, able to speak in full sentences and follow commands Neck: No JVD, trachea midline HEENT: PERRL, normocephalic, atraumatic Cardiac: Regular Rate and Rhythm, Normal S1 and S2, No murmurs appreciated, No peripheral edema Pulmonary: Normal Breath Sounds, No Wheezes, Rales, or Rhonchi, Not in respiratory distress, not on supplemental oxygen Abdomen: soft, tontender, no bruits, no guarding Neuro: Alert and responsive, No focal deficits noted Vascular: Normal capillary refill Skin: No rashes noted on visualized skin Musculoskeletal: No Chest Wall Tenderness Extremities: No Clubbing, No Cyanosis, No Edema, Normal Pulses Psych: Normal mood, pleasant, conversant - Patient Status Disposition: Home, Self-Care Condition: Good Functional capacity at discharge: independent ambulation Overall status at discharge: patient is back to baseline - Discharge Instructions Instructions: Chest Pain (DC) Follow Up With: Zahida Mendez [Other] - 12/17/17 9:30 am Forms: Inpatient Work/School Release - Diet and Activity Activity: increase activity as tolerated Diet: advance to your usual diet <Dolores Mullins - Last Filed: 12/09/17 16:05> Orders not resulted at time of discharge: Pending orders 12/08/17 05:59 NM yolanda perf SPECT multi [NM] Routine Date of Encounter: 12/09/17 Hospital course: Mr. Mercedes is a 47 year old male - Time Spent with Patient Total time spent providing and/or coordinating discharge services: Date of admission: 12/08/17 13:59 Primary care physician: Zahida Mendez - Constitutional Vitals: Temp Pulse Resp BP Pulse Ox 98.4 F 67 14 138/89 96 12/09/17 10:47 12/09/17 10:47 12/09/17 10:47 12/09/17 10:47 12/09/17 10:47 - Attending Attestation I examined this patient and my medical decision-making was reviewed with the Resident Physician Dr. Contreras. I agree with the documented findings, disposition and treatment plan as described except to the extent set forth below. Mr. Mercedes is a 47 year old male with history of single vessel CAD s/p stent in 2017, HTN, HLD, HTN, and GERD who presented to the ED on 12/08/17 with complaints of chest pain, shortness of breath, and elevated blood pressure. He states this morning he woke up feeling fatigued but went to work. At work, he attempted to eat breakfast at which time he began to experience significant nausea, diaphoresis, and shortness of breath. He denied any active CP now. His serial troponin were negative and stress test came back negative for ischemia. I was not able to examine the pt today since he left before I had seen him. I did talk to him over the ph and discussed with him about test results and instructions.
== END 2017-12-09 14:06 | disposition home or self-care (01) ==
LOC: 3ANU 12:07 → EMEROOARM 12:07 → 3ANU 14:23
PROVIDERS: ADMIT Internal Medicine; ATTEND Internal Medicine